=== PATIENT | female | born 1965 | race Caucasian/White ===

== ENCOUNTER → 2016-09-05 | Outpatient (CLI) | payer BC ==
[~2016-09-05] MED LIST: AMOX875T PO; CALC-393 PO; CALCTAB5 PO; FLNCV PO; IBUP-1050 PO; LRT5 PO
--- NOTE | 2016-09-05 16:34 | MAMMOGRAPHY REPORT ---
BILATERAL DIGITAL SCREENING MAMMOGRAM TOMOSYNTHESIS WITH CAD: 09/05/2016 CLINICAL HISTORY: Routine screening. Patient has no complaints. TECHNIQUE: Breast tomosynthesis in addition to standard 2D mammography was performed. Current study was also evaluated with a Computer Aided Detection (CAD) system. COMPARISON: Comparison is made to exams dated: 08/21/2015 mammogram, 08/19/2014 mammogram, 07/06/2013 mammogram, 01/07/2014 mammogram, 07/09/2013 mammogram, and 11/02/2010 mammogram - [facility]. BREAST COMPOSITION: The tissue of both breasts is heterogeneously dense, which may obscure small ma sses. FINDINGS: No suspicious masses, calcifications, or areas of architectural distortion are noted in e ither breast. There has been no significant interval change compared to prior exams. Scattered bilat eral benign-appearing calcifications are not significantly changed. Circumscribed benign-appearing 3.3 cm mass in the left 3:00 breast is again noted, and was shown to represent a benign cyst on the prior 2015 ultrasound exam. IMPRESSION: ACR BI-RADS CATEGORY 2: BENIGN There is no mammographic evidence of malignancy. A 1 year screening mammogram is recommended. The p atient will receive written notification of the results. Approximately 10% of breast cancers are not detected with mammography. A negative mammographic repor t should not delay biopsy if a clinically suggestive mass is present. Louann Le M.D. 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
== END | disposition home or self-care (01) ==
LOC: C.MAMM 15:59
PROVIDERS: ATTEND Family Medicine
DX: Z12.31 Encounter for screening mammogram for malignant neoplasm of breast (principal)

== ENCOUNTER 2017-04-16 10:42 | Emergency (ER) | payer OTHER, BC ==
[~2017-04-16] VITALS: Ht 165.1 cm; Wt 95.2 kg
[~2017-04-16 10:42] MED LIST changes: -AMOX875T PO; -CALC-393 PO; -IBUP-1050 PO
[2017-04-16 10:58] VITALS: PULSE 67; TEMP 36.7; O2SAT 98; Ht 165.1 cm; Wt 95.2 kg
[2017-04-16] MEDS ORDERED: LIDOCAINE/EPINEPH/TETRACAINE 1 EA SYR EXT STA (11:18)
[2017-04-16] MEDS ORDERED: IBUP-1050 PO (11:29)
[2017-04-16] MEDS ORDERED: CALC-393 PO (11:29)
[2017-04-16] MEDS ORDERED: BUPIVACAINE 0.5 % 5 MG/1 ML MPF 30ML VIAL INFIL ONE (11:30)
[2017-04-16] MEDS ORDERED: XYLOCAINE 1%/SOD BICARB 20 ML VIAL INFIL ONE (11:30)
--- NOTE | 2017-04-16 11:46 | DIAGNOSTIC IMAGING REPORT ---
RIGHT HAND 3 VIEWS HISTORY: right hand bites - felt bite to bone COMPARISON: None. FINDINGS: There is no fracture or dislocation. Soft tissues are unremarkable. No radiopaque foreign bodies. IMPRESSION: No fractures. Electronically signed by: Dmoinick James M.D. 04/16/2017 11:45 AM Dictated Date/Time: 04/16/2017 11:44 AM
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
[2017-04-16] MEDS ORDERED: AMOXICILLIN/CLAVULANATE TAB 875 MG TAB PO STA (12:11)
[2017-04-16] MEDS ORDERED: AMOX875T PO (12:16)
[2017-04-16 13:17] VITALS: BP 118/72
== END 2017-04-16 13:18 | disposition home or self-care (01) ==
LOC: C.EDB 10:44 → C.EDD 13:18
DX: S61.252A Open bite of right middle finger without damage to nail, initial encounter (principal); S61.254A Open bite of right ring finger without damage to nail, initial encounter; S61.256A Open bite of right little finger without damage to nail, initial encounter; W54.0XXA Bitten by dog, initial encounter; Z88.8 Allergy status to other drugs, medicaments and biological substances